=== PATIENT | male | born 1955 | race Caucasian/White ===

== ENCOUNTER → 2020-06-17 | Outpatient (CLI) | payer OTHER ==
[~2020-06-17] MED LIST: AMLO-150 PO; ATOR40TA78 PO; LISI-170 PO; MULT-717 PO
== END | disposition home or self-care (01) ==
LOC: STAR 14:09
PROVIDERS: ATTEND Urology
DX: Z01.812 Encounter for preprocedural laboratory examination (principal); Z20.822 Contact with and (suspected) exposure to COVID-19; N43.3 Hydrocele, unspecified
CPT/HCPCS: 93005; U0003

== ENCOUNTER 2020-06-23 11:48 | Day surgery (SDC) | payer OTHER ==
[~2020-06-23] VITALS: Ht 180.3 cm; Wt 91.1 kg
[2020-06-23 12:13] VITALS: BP 141/84
[2020-06-23] MEDS ORDERED: CHLORHEXIDINE 15 ML UDC PO ONE (12:30)
[2020-06-23] MEDS ORDERED: LACTATED RINGERS 1,000 ML IV SCH (12:30)
[2020-06-23] MEDS ORDERED: FENTANYL PF 250 MCG/5ML ONE (14:07)
[2020-06-23] MEDS ORDERED: BUPIVACAINE/PF 0.25% ONE (14:21)
[2020-06-23] MEDS ORDERED: ONDANSETRON 2MG/ML, 2ML ONE (14:41)
[2020-06-23] MEDS ORDERED: KETOROLAC 30 MG/1 ML ONE (14:41)
[2020-06-23] MEDS ORDERED: CEFAZOLIN 1,000 MG ONE (14:41)
[2020-06-23] MEDS ORDERED: PROPOFOL 10 MG/ML, 20ML ONE (14:41)
[2020-06-23] MEDS ORDERED: DEXAMETHASONE 4 MG/ML, 1ML ONE (14:41)
[2020-06-23] MEDS ORDERED: FENTANYL PF 100 MCG/2ML ONE ×2 (15:45→16:05)
[2020-06-23] MEDS ORDERED: hydrALAzine 20 MG/ML, 1ML ONE (16:25)
[2020-06-23] MEDS ORDERED: METHOCARBAMOL 1,000 MG in DEXTROSE 5% 100 ML IV PRN (16:30)
[2020-06-23] MEDS ORDERED: LORazepam 2 MG/ML, 1ML IVPush PRN (16:30)
[2020-06-23] MEDS ORDERED: ACETAMINOPHEN 325 MG TABLET PO PRN (16:30)
[2020-06-23] MEDS ORDERED: FENTANYL PF 100 MCG/2ML IV PRN (16:30)
[2020-06-23] MEDS ORDERED: MEPERIDINE/PF 25MG/0.5ML IVPush PRN (16:30)
[2020-06-23] MEDS ORDERED: HYDROmorphone 1 MG/ML, 1ML INJ IVPush PRN (16:30)
[2020-06-23] MEDS ORDERED: OXYcodone 5 MG/5 ML ORAL.SOL UDC PO PRN (16:30)
[2020-06-23] MEDS ORDERED: ONDANSETRON 2MG/ML, 2ML IVPush PRN (16:30)
[2020-06-23] MEDS ORDERED: LABETALOL 5MG/ML, 20ML IV PRN (16:30)
[2020-06-23] MEDS ORDERED: hydrALAzine 20 MG/ML, 1ML IV PRN (16:30)
[2020-06-23] MEDS ORDERED: PROMETHAZINE 25 MG/ML, 1ML IVPush PRN (16:30)
[2020-06-23] MEDS ORDERED: ACETAMINOPHEN 650 MG/20.3 ML UDC ONE (16:47)
== END 2020-06-23 18:00 | disposition home or self-care (01) ==
LOC: OUT 11:48
PROVIDERS: ATTEND Urology
DX: N43.3 Hydrocele, unspecified (principal); I10 Essential (primary) hypertension; Z79.899 Other long term (current) drug therapy; Z86.73 Personal history of transient ischemic attack (TIA), and cerebral infarction without residual deficits; Z88.0 Allergy status to penicillin
CPT/HCPCS: 55040; 88300; J0360; J0690; J1100; J1885; J2405; J2704; J3010; J7120; 88302